=== PATIENT | male | born 1985 | race Caucasian/White ===

== ENCOUNTER → 2018-11-27 | Outpatient (REF) | payer BC | LOC: M SFHCLERA 17:25 | PROVIDERS: ATTEND Physician Assistant Medical | DX: J02.9 Acute pharyngitis, unspecified (principal) ==

== ENCOUNTER → 2018-12-03 | Outpatient (CLI) | payer BC ==
--- NOTE | 2018-12-03 13:27 | REP ---
Chest two views HISTORY: Chest discomfort Comparison: 11/12/2018 The lungs are clear. The heart is normal in size. The pulmonary vasculature is normal in appearance. The bony structure is intact. IMPRESSION: No acute disease. Electronically Signed by Hugh Escobar MD 12/03/2018 01:19 P
== END ==
LOC: M LRY 12:36
PROVIDERS: ATTEND Nurse Practitioner Family
DX: R07.89 Other chest pain (principal)